=== PATIENT | male | born 1970 | race Caucasian/White ===

== ENCOUNTER 2016-05-11 09:33 | Emergency (ER) | payer OTHER ==
[2016-05-11 09:35] VITALS: BP 50/20; PULSE 56; RESP 14; O2SAT 100
--- NOTE | 2016-05-11 09:41 | ED.REPORT ---
HPI-General Illness Date of Service May 11, 2016 ED Provider: Sydney Luevano MD The patient is a 46 year old male who presents intubated to the ED via EMS due to a seizure [employer]. Pt had a seizure at home, his sister began CPR, and when medics arrived he was found to be in PEA. He was given 2 rounds of CPR, 1mg epi with return of pulses. He lost pulses again en route, transport time was about 15 minutes. He received another 2 rounds of CPR and epi. Per family, he had been in his usual state of health with no concerns or issues prior to event. THey describe his usual state of health as healthy, drug free (with the exception of marijuana) and only medical issues being chronic back pain. No HIV or Hepatitis risk factors per mother (IVDA, sex with men) Nursing Notes Stated Complaint: POST ARREST Chief Complaint: Critical Care/Intubated Nursing Notes Reviewed: Yes General Time Seen by MD: 09:33 Chief Complaint Seizure Hx Obtained From: EMS Unable to Obtain Hx: Patient condition Arrived By: Ambulance Sudden in Onset?: Yes Onset Occurred: Just prior to arrival Symptom Duration: Since onset Recent Healthcare: No recent doctor visit, No recent hospitalization Similar Sx Previous: No Past Medical History Past Medical History no additional hx Past Surgical History no additional hx Smoking History Unknown if Ever Smoker Social History Other Social History: Good social support, Local resident Ambulatory Status Independent Review of Systems Unable to Obtain ROS Patient condition Physical Exam Vital Signs Vital Signs Date Time Temp Pulse Resp B/P Pulse Ox O2 Delivery O2 Flow Rate FiO2 05/11/16 09:35 56 14 50/20 100 Mechanical Ventilator Initial VS: Reviewed Alertness: Positive: Unresponsive intubated very cold no obvious trauma Head / Eyes: Normocephalic stationary and fixed pupils Respiratory / Chest: No wheezing, No retractions Rales / Rhonchi: Positive: Rhonchi coarse L, Rhonchi coarse R Cardiovascular: Heart rate NL, Regular rhythm, Heart sounds NL, No gallop, No murmurs, No rubs poor peripheral perfusion and modeling throughout Abdomen: Atraumatic, Soft, Non-tender, No guarding, No rebound Upper Extremities Upper Extremity / MS: Atraumatic, Inspection NL, No swelling, Non-tender, No erythema Lower Extremity / Pelvis / MS: Atraumatic, Inspection NL, No swelling, No erythema, No deformity Skin: Atraumatic, Color NL, Dry, Intact no skin breaking Interpretation & Diagnostics Lab Results Interpretation Result Diagram: 05/11/16 1044 05/11/16 1044 Test 05/11/16 10:44 White Blood Count 9.3th/mm3 (3.8-10.1) Red Blood Count 4.34mil/mm3 (4.40-5.80) Hemoglobin 14.4g/dL (13.8-17.2) Hematocrit 39.8% (41.0-50.0) Mean Corpuscular Volume 91.7fL (81-100) Mean Corpuscular Hemoglobin 33.2pg (27.0-35.0) Mean Corpuscular Hemoglobin Concent 36.2% (32.0-37.0) Red Cell Distribution Width 12.7% (12.3-15.4) Platelet Count 218bil/L (150-400) Neutrophils (%) (Auto) 79.0% (40-74) Lymphocytes (%) (Auto) 11.4% (14-46) Monocytes (%) (Auto) 8.8% (4-12) Eosinophils (%) (Auto) 0% (0-5) Basophils (%) (Auto) 0.2% (0-3) Sodium Level 125mEq/L (134-144) Potassium Level 3.3mEq/L (3.5-5.2) Chloride Level 83mEq/L (97-108) Carbon Dioxide Level 17mmol/L (18-29) Blood Urea Nitrogen 8mg/dL (6-24) Creatinine 0.93mg/dL (0.76-1.27) Estimat Glomerular Filtration Rate 93mL/min (>59) Glucose Level 163mg/dL (60-99) Calcium Level 9.3mg/dL (8.5-10.1) Total Bilirubin 2.1mg/dL (0.0-1.2) Aspartate Amino Transf (AST/SGOT) 60U/L (0-50) Alanine Aminotransferase (ALT/SGPT) 30U/L (0-44) Alkaline Phosphatase 77U/L (25-150) Total Protein 7.8g/dL (6.4-8.4) Albumin 4.3g/dL (3.4-5.0) X-Ray Chest Interpretation Chest Xray Interpretation: IMPRESSION: Placement of ETT otherwise no definite acute cardiopulmonary process. Dictated by: Joby Hsu RRA Interpreted: Fany Davis MD on 05/11/2016 at 10:51 Transcribed by: PENNY on 05/11/2016 at 10:51 Approved by: Fany Davis MD, PhD on 05/11/2016 at 11:01 View: Portable Interpretation / Wet Read by: Interpret - Radiologist CT Head Interpretation IMPRESSION: 1. Large acute parenchymal bleed involving the left basal ganglia, left frontal lobe and left parietal lobe. 2. Interventricular hemorrhage. 3. 1.7 cm of left to right midline shift. 4. Large lateral ventricles concerning for ventricular entrapment. 5. Basilar cisterns and cerebral sulcal effacement compatible with increased intracranial pressure. 6. Findings telephoned to Dr. Sydney Luevano on 05/11/2016 at 0941 hours. This study fulfills neurological imaging criteria for inclusion or exclusion of acute stroke therapies based on available published neurological imaging guidelines. Dictated by: Fany Davis MD, PhD on 05/11/2016 at 9:43 Approved by: Fany Davis MD, PhD on 05/11/2016 at 9:53 Study: Head CT no contrast Interpretation / Wet Read by: Interpret - Radiologist Re-Eval/Medical Decision Med Decision/Clinical Course otherwise healthy 46-year-old gentleman noted to have acute seizure activity at home and then lost pulses. Sister started CPR please see history of present illness for additional details upon arrival in the emergency department, he had return of spontaneous circulation. He was taken to the CT T scanner directly from the ambulance pain. With spontaneous return of circulation young age no prior history presents and was made that we would begin calling protocols. Initial scan and the CT showed large intraparenchymal hemorrhage with left shift. Exam was consistent with severe bleed and inconsistent with expected survival. Family was available shortly after patient returned from CT scan. Long discussion regarding severity findings current intubation status difficulties with maintaining pressure and dropping heart rate. Discussed anticipated mortality. Possibility of organ donation was raised. Patient is not his mother father and 2 sisters cousin were all available all agreed that he would be interested in organ donation asked that we proceed with seen there were any possibilities Calls were made to [place] or [facility] and they became involved. Cultures were also made to [facility] to begin discussion with neurologist to see what additional options could be done to temporize the meantime. He remained intubated we also begin fluid resuscitation as well as a dopamine drip for pressure support. Epinephrine drip was also ordered to help maintain cardiac output. I began making arrangements for central line placement. Patient's heart rate continued to slowly was given multiple doses of atropine with little response. Eventually he became completely asystolic no pulses. Family was in the room next door. Given the 100% mortality anticipated CPR was not started. Family was immediately at the bedside and agreed with all activity. Final time of is 10:09 Cause is intraparenchymal bleed Likely not related to smoking Time between onset and is one hour Time of Eval: 09:45 Re-Evaluation/Progress Note: Discussion with family regarding organ donation. Time of Eval: 10:11 Re-Evaluation/Progress Note: Pt coded and passed. Consultation : Call Returned at: 09:52 Note: Case discussed with [facility]. [facility] family conference. Mother, father, and 2 sisters all agree he would want to donate his organs. [facility] Discharge & Departure Departure Notes Final diagnosis of large intraparenchymal hemorrhage/stroke. TPA was considered and was not an option as patient and it was a hemorrhagic stroke Primary Impression: Parenchymal hemorrhage Disposition: Discharge Condition All VS Reviewed: Yes Condition: Referrals: Sugey Tompkins (PCP) Crit Care Except Billable Proc Time Spent: 75-104 minutes Services Performed: Patient management by me, Time spent at bedside, Reviewing test results, Reviewing imaging, Discussing patient care, Documentation in record, Time with fam/surrogate Scribe Attestation Portion of this note were transcribed by Phyllis Jain. I, Dr. Luevano, personally performed the history, physical exam, and medical decision-making: I reviewed and confirmed the accuracy for the information in the transcribed note. Signed by: zev Hernandez, 05/11/16 1100 copies to: Sugey Tompkins Shawna L MD May 11, 2016 09:41 Phyllis Jain May 11, 2016 09:47
[2016-05-11] MEDS ORDERED: DOPamine 800 mg/250 mL D5W 800,000 MCG in IV Premix 1 EACH IV SCH (09:53)
[2016-05-11] MEDS ORDERED: 0.9% Sodium Chloride 1,000 ML IV ONE (09:53)
--- NOTE | 2016-05-11 09:54 | DRSVH ---
PROCEDURE: CT BRAIN (TPA) ([id number]) INDICATIONS: post arrest, r/o bleed TECHNIQUE: Noncontrast 4.5 mm thick angled axial sections acquired from the foramen magnum to the vertex, with c oronal reformats. COMPARISON: None. FINDINGS: Image quality: Excellent. CSF spaces: Basal cisterns are patent. No extra-axial fluid collections. Ventricles are normal in size and shape. Brain: There is a large approximately 9.1 x 6.1 x 6.2 cm acute hematoma involving the left basal gang zaida, left frontal lobe and left parietal lobe. Interventricular hemorrhage is noted in the lateral an d third ventricles. There is approximately 1.7 cm of left to right subfalcine herniation. The lateral ventricles are enlarged concerning for ventricular entrapment. Basilar cisterns and cerebral sulci a re effaced. Skull and face: Calvarium and visualized facial bones are intact, without suspicious lesions. Presen ce of endotracheal tube is noted. Sinuses: Mucosal thickening and mucous retention cyst versus polyp noted in the right maxillary sinus . Mucosal thickening in left maxillary sinus. mastoids are clear. IMPRESSION: 1. Large acute parenchymal bleed involving the left basal ganglia, left frontal lobe and left parieta l lobe. 2. Interventricular hemorrhage. 3. 1.7 cm of left to right midline shift. 4. Large lateral ventricles concerning for ventricular entrapment. 5. Basilar cisterns and cerebral sulcal effacement compatible with increased intracranial pressure. 6. Findings telephoned to Dr. Sydney Luevano on 05/11/2016 at 0941 hours. This study fulfills neurological imaging criteria for inclusion or exclusion of acute stroke therapie s based on available published neurological imaging guidelines. Dictated by: Fany Davis MD, PhD on 05/11/2016 at 9:43 Approved by: Fany Davis MD, PhD on 05/11/2016 at 9:53
[2016-05-11] MEDS: Atropine 1 mg/10 mL (Code) Syringe IVPUSH PRN ×2 (10:03→10:05)
[2016-05-11] MEDS ORDERED: EPINEPHrine 1 mg/mL Inj 10 MG in 0.9% Sodium Chloride 240 ML IV SCH (10:05)
--- NOTE | 2016-05-11 10:51 | DRSVH ---
PROCEDURE: X-RAY CHEST ONE VIEW, PORTABLE ([id number]) INDICATIONS: intubation TECHNIQUE: One view of the chest was acquired. COMPARISON: None. FINDINGS: Surgical changes and devices: ETT present tip projected 11.7 cm above the belén. Lungs and pleura: No pleural effusions or pneumothorax. Lungs are clear. Mediastinum: Mediastinal contours appear normal. Heart size is normal. Bones and chest wall: No suspicious bony lesions. Overlying soft tissues appear unremarkable. IMPRESSION: Placement of ETT otherwise no definite acute cardiopulmonary process. Dictated by: Joby Hsu [facility] Interpreted: Fany Davis MD on 05/11/2016 at 10:51 Transcribed by: PENNY on 05/11/2016 at 10:51 Approved by: Fany Davis MD, PhD on 05/11/2016 at 11:01
[2016-05-11 10:54] LABS: BASOPHILS % (AUTO) 0.2 % (0-3); EOSINOPHILS % (AUTO) 0 % (0-5); MONOCYTES % (AUTO) 8.8 % (4-12); Mean Corpuscular Hemoglobin 33.2 pg (27.0-35.0); Mean Corpuscular Volume 91.7 fL (81-100); Platelet Count 218 bil/L (150-400)
--- NOTE | 2016-05-11 11:58 | NUR ---
spiritual care: ER supportive care to family through notification of his and next steps planning. awaiting update from tissue donation and move to different room as brother is expected --traveling from [facility] early pm
== END 2016-05-11 12:47 | disposition expired ==
LOC: SED 09:33
DX: I61.8 Other nontraumatic intracerebral hemorrhage (principal); R56.9 Unspecified convulsions
CPT/HCPCS: 36415; 70450; 71010; 80053; 85025; 86850; 94002; 94799; 96374; 99291; 99292; J0461; J7030